=== PATIENT | female | born 1980 | race Caucasian/White ===

== ENCOUNTER 2023-04-02 15:06 | Emergency (ER) | payer BC, SELFPAY ==
--- NOTE | ~2023-04-02 | XR_ITS ---
EXAMINATION: XR foot RT 2V DATE: 04/02/2023 15:46 INDICATION: Right foot injury. TECHNIQUE: 2 views of right foot were obtained. COMPARISON: None. FINDINGS: Bone alignment is normal. No fracture. 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 There is mild osteoarthritis of first metatarsophalangeal joint. There is an enthesophyte at plantar aspect of calcaneal tuberosity. IMPRESSION: 1. No acute fracture. Reviewed, dictated and finalized at location B. IMPRESSION: 1. No acute fracture.
[2023-04-02 15:22] VITALS: BP 130/69; PULSE 83; RESP 16; TEMP 36.7; O2SAT 99
[2023-04-02 15:23] VITALS: BP 130/69; PULSE 83; RESP 16; TEMP 36.7; O2SAT 99
--- NOTE | 2023-04-02 15:32 | ED.LOWEXIN ---
HPI - Extremity Injury (Lower) General Chief Complaint: Extremity Injury, Lower Stated Complaint: Right Foot Pain History of Present Illness HPI Narrative: Pt is a 42 y/o female, presents to with right great toe nail plate injury, sustained shortly [employer] when she caught her nail plate on a trim piece while shampooing her carpet at home. Her nail plate is avulsed, almost completely. She denies pain in the toe otherwise. She is uncertain when her last tetanus was received. She denies chance of Related Data Home Medications Medication Instructions Recorded Confirmed No Home Medications 04/02/23 04/02/23 Allergies Allergy/AdvReac Type Severity Reaction Status Date / Time No Known Allergies Allergy Unverified 06/27/13 15:55 Review of Systems Musculoskeletal: Comments: refer to HPI Integumentary/Breasts: Comments: refer to HPI Exam Const: General: healthy appearing, no acute distress and alert Orientation/consciousness: patient oriented x3 Limitations: no limitations HENMT: Head: normal to inspection Ears: external ears normal and TM's normal bilaterally Face/Nose/Sinus: Normal external nose present Eyes: Conjunctivae: conjunctivae normal EOM: EOMs intact bilaterally Neck: Neck: normal visual inspection and no meningeal signs Resp: Effort & Inspection: normal respiratory effort Auscultation: clear to auscultation bilaterally Cardio: Rate: regular rate Rhythm: regular rhythm Skin: Wounds: wounds noted (right great toe nail plate is avulsed, attached only by the base cuticle) Neuro: General: patient oriented x3 Cranial nerves: Yes Nystagmus not present Extrem: General: normal to inspection Other: except right great toe nail injury Psych: Mental Status: mental status grossly normal Course Course Emergency Course: plain films, nail plate removal Level of Care: Express Care Visit ([id number]) Vital Signs Vital signs: Vital Signs Temperature 36.7 C 04/02/23 15:22 Pulse Rate 83 04/02/23 15:22 Respiratory Rate 16 04/02/23 15:22 Blood Pressure 130/69 04/02/23 15:22 Pulse Oximetry 99 04/02/23 15:22 Oxygen Delivery Room Air 04/02/23 15:22 Temperature 36.7 C 04/02/23 15:23 Pulse Rate 83 04/02/23 15:23 Respiratory Rate 16 04/02/23 15:23 Blood Pressure 130/69 04/02/23 15:23 Pulse Oximetry 99 04/02/23 15:23 Oxygen Delivery Room Air 04/02/23 15:23 Procedures Other Procedure Procedure 1: Other Procedure: nail plate avulsion of the right great toe nail. Pt is prepared with sterile technique, betadine prep at the toe base dorsally, digital block completed with lidocaine 1% without epi, wing block technique, aspiration, 1/4 bevel turn, aspiration again without blood return, 2 ml infiltrated to each side, adequate anesthesia. A tourniquet is applied to the toe, nail plate is easily removed with osmel forceps, vaseline gauze is placed in the nail bed, covered with curlex after tourniquet is removed. Pt tolerated very well. Hemostasis acheived. MDM - Extremity Injury (Lower) MDM Narrative Medical decision making narrative: AVULSION OF NAIL PLATE: removed successfully, no underlying nail bed laceration or open fracture. Tdap booster provided. Home care instructions and FU with podiatry stressed. Differential Diagnosis Differential diagnosis: Likely fracture of toe and other (AVULSION OF NAIL PLATE) Discharge Plan Discharge Clinical Impression: Total avulsion of nail plate Patient Disposition: Home, Self-Care Condition: Stable Instructions: Antibiotic Form, Nail Avulsion (ED) Additional Instructions: KEEP WOUND CLEAN AND DRY. CHANGE DRESSING IN 24 HOURS AND DAILY THEREAFTER. SEE PODIATRY FOR FOLLOW UP WITH ANY HEALING CONCERNS Prescriptions: No Action No Home Medications Follow-up/Referrals: Curtis Arthur DPM [Physician] - PHYSICIAN,PATIENT ACCOUNTS COORDINATOR [Primary Care Provider] - Time of Disposition: 1
[2023-04-02] MEDS: TETANUS,DIPHTHERIA,AC PERTUSSIS ADULT (0.5 ML) BOOSTRIX IM (15:46)
== END 2023-04-02 16:37 | disposition home or self-care (01) ==
PROVIDERS: Emergency Provider Nurse Practitioner Family
DX: S91.201A Unspecified open wound of right great toe with damage to nail, initial encounter (principal); W22.8XXA Striking against or struck by other objects, initial encounter; Z23 Encounter for immunization
CPT/HCPCS: 11730; 73620; 90471; 90715; 99213; G0463